=== PATIENT | female | born 1970 | race Caucasian/White ===

== ENCOUNTER 2017-10-27 13:05 | Day surgery (SDC) | payer OTHER, MEDICAID ==
[2017-10-27] MEDS ORDERED: LIDOCAINE 100 MG SYRINGE (14:46)
[2017-10-27] MEDS ORDERED: PROPOFOL 20 ML (14:46)
[2017-10-27] MEDS ORDERED: FENTAnyl 50 MCG/ML VIAL (14:47)
== END 2017-10-27 16:06 | disposition home or self-care (01) ==
LOC: GIL 13:05
DX: K20.9 Esophagitis, unspecified (principal); K29.70 Gastritis, unspecified, without bleeding; I10 Essential (primary) hypertension
CPT/HCPCS: 43239; 84703; 88305; 88312; 88313